=== PATIENT | male | born 1990 | race Caucasian/White ===

== ENCOUNTER 2019-06-14 14:06 | Emergency (ER) | payer SELFPAY ==
[~2019-06-14] VITALS: Ht 167.6 cm; Wt 72.7 kg
[2019-06-14] MEDS ORDERED: LIDOCAINE W/EPINEPHRINE 1% 20ML VIAL SC ONE (15:00)
[2019-06-14] MEDS ORDERED: KEFL500C17 PO (16:11)
[2019-06-14] MEDS ORDERED: CEPHALEXIN 500 MG CAP PO ONE (16:15)
[2019-06-14 16:22] VITALS: BP 134/76
== END 2019-06-14 16:31 | disposition home or self-care (01) ==
LOC: M ED 14:06
DX: S01.01XA Laceration without foreign body of scalp, initial encounter (principal); S01.81XA Laceration without foreign body of other part of head, initial encounter; W31.89XA Contact with other specified machinery, initial encounter; Y92.018 Other place in single-family (private) house as the place of occurrence of the external cause